=== PATIENT | female | born 2000 | race Two or more races ===

== ENCOUNTER 2025-06-05 17:29 | Emergency (ER) | payer OTHER ==
[~2025-06-05] VITALS: Ht 152.4 cm; Wt 49.9 kg
[2025-06-05] MEDS ORDERED: KETOROLAC TROMETHAMINE 30 MG VIAL IV ONE (18:15)
[2025-06-05] MEDS ORDERED: 0.9 % SODIUM CHLORIDE 1,000 ML IV ONE (18:15)
[2025-06-05 19:23] LABS: BASO % 0.5 % (0.1-1.2); EOS # 0.06 (0.04-0.54); EOS % 0.7 % (0.7-7.0); LYMPH # 2.13 (1.18-3.74); LYMPH % 26.0 % (19.3-53.1); MEAN PLATELET VOLUME 10.60 fl (9.4-12.4); MONO # 0.63 (0.24-0.82); MONO % 7.7 % (4.7-12.5); NEUT # 5.31 (1.56-6.13); NEUT % 64.7 % (34.0-71.1); RED CELL DISTRIBUTION WIDTH 12.0 % (11.6-14.4)
[2025-06-05 19:59] LABS: URINE APPEARANCE Cloudy; URINE BILIRRUBIN Negative (NEGATIVE); URINE BLOOD Negative; URINE COLOR Yellow; URINE GLUCOSE Negative (NEGATIVE); URINE KETONE Trace (NEGATIVE); URINE LEUKOCYTE Negative; URINE NITRATE Negative; URINE PROTEIN Negative (NEGATIVE); URINE UROBILINOGEN 0.2 E.U./dl
[2025-06-05 20:02] LABS: INR 1.05
[2025-06-05 20:03] LABS: URINE BACTERIA 2265.4 uL (0.0-1933); URINE EPITHELIAL CELLS 33.2 uL (0.0-38.8); URINE RBC 3.9 uL (0.0-20.8); URINE WBC 26.2 uL (0.0-23.2)
[2025-06-05 20:12] LABS: ALT/SGPT 15 U/L (12-78); AST/SGOT 19 U/L (15-37); BILIRUBIN TOTAL 0.39 mg/dL (0.3-1.2); BUN CREA RATIO 14 (7.0-25.0); CREATININE SERUM 0.64 mg/dL (0.55-1.02); GFR 114.00; GLOBULINA 3.2 G/DL (2.4-3.5); GLUCOSE FASTING 87 mg/dL (65-100); OSMOLALITY SERUM 283 MOSM/KG (275-295)
[2025-06-05 20:14] LABS: HCG QUANTITATIVE < 1 mUI/mL (1-3)
[2025-06-05 20:27] LABS: URINE CAST 1.02 uL (0.0-1.40)
[2025-06-05] MEDS ORDERED: PROTONIX40 MG PO (22:22)
[2025-06-05] MEDS ORDERED: NORFLEX100MG PO (22:22)
== END 2025-06-05 22:43 | disposition home or self-care (01) ==
LOC: ER 17:29
PROVIDERS: General Practice
DX: R10.32 Left lower quadrant pain (principal); N83.201 Unspecified ovarian cyst, right side; Z91.011 Allergy to milk products